=== PATIENT | female | born 1965 | race Caucasian/White ===

== ENCOUNTER 2017-03-13 22:53 | Inpatient (IN) | payer OTHER ==
[~2017-03-13] VITALS: Ht 172.7 cm; Wt 70.3 kg
--- NOTE | 2017-03-13 23:05 | NUR ---
PT BIB PA WITH A C/O LOW H&H. PT IS TRACH (SHILEY 8) VENTED (AC12, TV 400, FIO2 30%, PEEP 5). PT IS NON VERBAL. PT HAS RUE DOUBLE LUMEN PICC LINE. PT HAS LARGE HEMATOMA UNDER THE PICC LINE ON RUE. PT HAS RECTAL TUBE, GTUBE, HARRIS CATH VERIFYING MACHINE OPERATOR. PT IS ON THE MONITOR AND CONTINUOUS PULSE OX. WILL CONTINUE TO MONITOR THE PT.
--- NOTE | 2017-03-13 23:05 | NUR ---
DNR NOTED IN PT'S CHART. MEDICAL INTERVENTIONS = FULL TX.
[2017-03-13 23:24] LABS: LYMPHOCYTES # (AUTO) 0.3 /CMM (0.8-4.8); LYMPHOCYTES % (AUTO) 5.4 % (20.0-44.0); MEAN CORPUSCULAR HEMOGLOBIN 32 PG (26.0-33.0); MEAN CORPUSCULAR HGB CONC 34 g/dl (31.0-36.0); MEAN CORPUSCULAR VOLUME 94 fL (82-100); MONOCYTES # (AUTO) 0.4 /CMM (0.1-1.30); MONOCYTES % (AUTO) 8.3 % (2.0-12.0); NEUTROPHILS # (AUTO) 4.3 /CMM (1.8-8.9); NEUTROPHILS % (AUTO) 86.3 % (43.0-81.0); PLATELET COUNT (AUTO) 118 /CMM (150-450); RDW COEFFICIENT OF VARIATION 18.6 (11.5-15.0)
[2017-03-13 23:29] LABS: RED BLOOD CELL COUNT(AUTO) 1.88 MIL/uL (4.0-5.2)
[2017-03-13 23:30] LABS: HEMATOCRIT 18 % (33-45)
[2017-03-13 23:34] LABS: CALCIUM, SERUM 8.8 mg/dL (8.5-10.1); CREATININE 0.5 mg/dL (0.6-1.3); POTASSIUM 5.2 mmol/L (3.5-5.1)
[2017-03-13 23:35] VITALS: BP 104/68
[2017-03-13 23:38] LABS: INR 0.93 (0.87-1.13)
[2017-03-13 23:39] LABS: BILIRUBIN,DIRECT 0.4 mg/dL (0.0-0.2); BILIRUBIN,TOTAL 1.3 mg/dL (0.2-1.0); TOTAL PROTEIN, SERUM 4.3 g/dL (6.4-8.2)
[2017-03-13 23:42] LABS: ALBUMIN 1.4 g/dL (3.4-5.0)
[2017-03-13 23:54] LABS: BAND % (MANUAL) 7 % (0.0-5.0); LYMPHOCYTES % (MANUAL) 6 % (16-48); MONOCYTES % (MANUAL) 9 % (0-11.0); NEUTROPHILS % (MANUAL) 78 (42-76)
--- NOTE | 2017-03-13 23:58 | NUR ---
PT HAS HX OF MYOTONIC MUSCULAR DYSTROPHY WITH SUBACUTE RESP FAILURE.
[2017-03-14] VITALS (24 sets, daily range): BP systolic 95–130; BP diastolic 50–81
--- NOTE | 2017-03-14 00:13 | NUR ---
BLOOD CONSENT IS IN THE CHART.
[2017-03-14] MEDS ORDERED: LEVO125T8 GT (00:34)
[2017-03-14] MEDS ORDERED: NA P133E RC (00:34)
[2017-03-14] MEDS ORDERED: NUT.237L30 GT (00:34)
[2017-03-14] MEDS ORDERED: INSU3INS8 SQ (00:34)
[2017-03-14] MEDS ORDERED: DULCOLAX SUPPOSITORY PR (00:34)
[2017-03-14] MEDS ORDERED: PANT40TA2 GT (00:34)
[2017-03-14] MEDS ORDERED: CALC650T29 GT (00:34)
[2017-03-14] MEDS ORDERED: NAPH1POW3 GT (00:34)
[2017-03-14] MEDS ORDERED: HYDR100V IV (00:34)
[2017-03-14] MEDS ORDERED: MAGN400O21 PO (00:34)
[2017-03-14] MEDS ORDERED: CHOL200026 GT (00:34)
[2017-03-14] MEDS ORDERED: ONDA4TAB10 GT (00:34)
[2017-03-14] MEDS ORDERED: LANO3.5O3 EACHEYE (00:34)
[2017-03-14] MEDS ORDERED: ACET325T53 GT (00:34)
--- NOTE | 2017-03-14 00:35 | NUR ---
TELE 306
--- NOTE | 2017-03-14 01:22 | NUR ---
CALLING REPORT TO TELE NURSE. Maine SNIDER DNP ADMITTING PT.
--- NOTE | 2017-03-14 02:00 | NUR ---
TELE COMPANY MINER BLASTING INITIAL NOTES ADMIT A PT FROM ER VIA GURNEY ACCOMPANIED BY ER NURSE , RT AND NURSE. DX OF ANEMIA. PT ON MECHANICAL VENT SET UP BY RT ORDERED. TV 400, FIO2 30, PEEP5, AC12. PT SKIN WARM AND DRY TO TOUCH, PALE AND NOTICED RASH ON HER FACE, DRY LIPS, DISCOLORATION ON BOTH ARM , EXCORIATION ON BOTH GROIN AREA , BUTTOCKS AREA, INNER THIGH, BRUISE ON RIGHT LOWER BACK. NO SIGNS OF ANY ACUTE DISTRESS NOTED AT THIS TIME. HARRIS TO GRAVITY WITH ORANGE COLORED OUTPUT, ALSO WITH RECTAL TUBE AND G-TUBE CLAMPED AT THIS TIME. ON TELE SR WITH 1ST DEGREE AV BLOCK HEART RATE 76 PER MONITOR. KEPT HER WARM AND COMFORTABLE AT ALL TIMES. WILL CONTINUE TO MONITOR.
--- NOTE | 2017-03-14 05:40 | NUR ---
COMMUNITY OUTREACH SPECIALIST/NOTES BLOOD TRANSFUSION STARTED VITAL SIGNS FF BP 99/62, PULSE RATE 74, RESP 14 TEMP 97.5 AND O2 SAT 100 %. VERIFIED AND CHECKED BY ANOTHER NURSE. KEPT HER COMFORTABLE AND RE ASSESS PT AFTER 15 MINUTES. WILL CONTINUE TO MONITOR.
--- NOTE | 2017-03-14 06:00 | NUR ---
BUSINESS REPORTER/NOTES RE-CHECKED PT VITAL SIGNS STABLE , NOT IN ANY ACUTE DISTRESS NOTED. KEPT HER WARM AND COMFORTABLE AT ALL TIMES. WILL CONTINUE TO MONITOR. TELE SR WITH 1ST DEGREE AV BLOCK .
--- NOTE | 2017-03-14 07:41 | NUR ---
TELE WATER REGULATOR AND VALVE REPAIRER CLOSING NOTES PT STILL ON BLOOD TRANSFUSION , NO ADVERSE REACTION NOTED. VITAL SIGNS WITHIN NORMAL LIMIT. TELE SINUS RHYTHM WITH 1ST DEGREE AV BLOCK HEART RATE 82 PER MONITOR. GOT ADMITTING ORDERED FROM DR LABOY. KEPT PT WARM AND COMFORTABLE AT ALL TIMES. ENDORSE TO AM NURSE FOR CONTINUITY OF CARE.
--- NOTE | 2017-03-14 07:56 | NUR ---
COSTUME RENTAL CLERK OPENING NOTE RECEIVED PATIENT IN BED SLEEPING. RESPONSIVE TO VERBAL STIMULI. RESPIRATION REGULAR AND UNLABORED. PATIENT IS NON-VERBAL. NO APPARENT DISTRESS. NOTED. DENNIS PICC LINE WITH NO S/S INFILTRATION. BED LOW AND LOCKED. SIDE RAIL UP X3. CALL LIGHT WITHIN REACH. WILL CONTINUE TO MONITOR.
[2017-03-14] MEDS ORDERED: ACETAMINOPHEN 650 MG/20.3 ML UDC GT PRN (09:00)
[2017-03-14] MEDS ORDERED: GLYTROL 1,000 ML BAG GT SCH (09:00)
[2017-03-14] MEDS ORDERED: LEVOTHYROXINE SODIUM 125 MCG TABLET GT SCH (09:00)
[2017-03-14] MEDS ORDERED: MAGNESIUM HYDROXIDE 30 ML UDC PO PRN (09:00)
[2017-03-14] MEDS ORDERED: NA PHOS,M-B/NA PHOS,DI-BA 1 EA ENEMA RC PRN ×2 (09:00→09:15)
--- NOTE | 2017-03-14 09:00 | NUR ---
RN NOTES NOTIFIED DR. LABOY REGARDING BLOOD TRANSFUSION ORDERS TO CLARIFY ORDERS, PER MD GIVE 3 UINITS OF PRBC STAT AND THEN RECHECK CBC BMP, RELAYED PROTOCOL OF CHECKING H/H 1 HR AFTER EACH TRANSFUSION, STATES " NO I WANT HER TO GET 3 UNITS THEN CHECK LABS, SHE MOST LIKELY BE DISCHARGED" WILL ADMINISTER BLOOD TRANSFUSIONS ORDERED AND CONTINUE TO MONITOR
[2017-03-14] MEDS ORDERED: ONDANSETRON 4 MG TAB.RAPDIS GT PRN (09:30)
[2017-03-14] MEDS ORDERED: BISACODYL SUPP (10 MG) 10 MG/SUPP.RECT SUPP.RECT RC PRN (09:30)
[2017-03-14] MEDS ORDERED: CHOLECALCIFEROL 1,000 UNIT TABLET (VIT D3) GT SCH (09:30)
[2017-03-14] MEDS: PANTOPRAZOLE 40 MG/PACK PACK GT SCH ×2 (11:09→16:33)
[2017-03-14] MEDS: NEUTRA PHOS 1 POWD.PACKET GT SCH ×3 (11:09→16:33)
[2017-03-14] MEDS: CALCIUM CARBONATE (1250) 500 MG TABLET GT SCH ×3 (11:09→16:33)
[2017-03-14] MEDS: LANOLIN/MIN OIL/PETROLAT,WHT 3.5 GM TUBE EACHEYE SCH ×4 (11:31→21:13)
[2017-03-14] MEDS ORDERED: INSULN 70/30 ASP+PRT/ASP MIX 100 UNIT/ML CARTRIDGE SQ SCH (12:30)
--- NOTE | 2017-03-14 16:46 | NUR ---
PT NOT READY FOR CT SCAN, RN WILL CALL WHEN READY.
--- NOTE | 2017-03-14 17:57 | NUR ---
RN NOTES PT S/P BLOOD TRANSFUSIONS PRBC X3 UNITS PER MD ORDERS, PER MD REDRAW CBC AND BMP AND STAT CT OF ABD AND PELVIS RN TO NOTIFY DR. LABOY OF RESULTS PRIOR TO DISCHARGE, CHARLENE BERNARD AWARE PER CHARLENE BERNARD PT TO BE DISCHARGED TODAY ORDERED BY MD WILL CONTINUE TO ASSIST WITH DISCHARGE PROCESS AND CONTINUE TO MONITOR Addendum: 03/14/17 at 1800 by MOSES MANUEL RN RN NOTES NO ADVERSE REACTIONS TO BLOOD TRANSFUSIONS NOTED, WILL CONTINUE TO MONITOR
--- NOTE | 2017-03-14 18:00 | NUR ---
TELE/RN CLOSING NOTE PATIENT IN BED AWAKE. NO -RESPONSIVE. NO MANIFESTATION OF SOB, PAIN NOTED. IN NO APPARENT DISTRESS. GOOD AND GENTLE SKIN CARE RENDERED. MEDS GIVEN ORDERED AND NO ASE NOTED. DENNIS PICC LINE PATENT AND NO S/S INFILTRATION NOTED. BED LOW AND LOCKED. SIDE RAIL UP X3. CALL LIGHT WITHIN REACH. WILL ENDORSE TO NIGH SHIFT.
--- NOTE | 2017-03-14 18:06 | NUR ---
RN NOTES NOTIFIED RADIOLOGY PT HAS COMPLETED BLOOD TRANSFUSIONS AND PT READY TO HAVE CT SCAN, PER RADIOLOGY WILL COME AFTER DONE WITH OTHER EXAM IN ER, WILL CONTINUE TO MONITOR AT THIS TIME
--- NOTE | 2017-03-14 19:20 | NUR ---
ASSOCIATE MANAGER NOTES RECEIVED PT IN BED, APPEARS COMFORTABLE. TRACH WITH VENT INTACT AND PATENT, SUCTIONED PRN. NO S/S OF DISTRESS, NOR SOB NOTED. DENNIS PICC LINE INTACT AND PATENT, WITH GOOD VENOUS RETURN. GT IS INTACT AND PATENT, GTF ELI WELL. ON ASPIRATION PRECAUTION. FC IS INTACT AND PATENT DRAINING WELL WITH YELLOW URINE, NO HEMATURIA NOTED. RECTAL TUBE IN PLACE. NO S/S OF PAIN OR DISCOMFORT AT THIS TIME. ALL NEEDS ANTICIPATED. SAFETY PRECAUTIONS OBSERVED. WILL CONT TO MONITOR PT IS FOR DISCHARGE TONIGHT, AWAITING TRANSPORTATION.
[2017-03-14 19:51] LABS: CALCIUM, SERUM 8.7 mg/dL (8.5-10.1); CREATININE 0.4 mg/dL (0.6-1.3); POTASSIUM 4.8 mmol/L (3.5-5.1)
--- NOTE | 2017-03-14 20:06 | NUR ---
RECEIVED A CALL FROM CHRISTIANA , PER CHRISTIANA PT IS OK TO BE DISCHARGED TONIGHT, SHE VERIFIED ALREADY WITH [facility] PROCTOR NURSE. Addendum: 03/15/17 at 0211 by ROSALES LAMBERT RN INCORRECT DOCUMENTATION TIME
--- NOTE | 2017-03-14 21:05 | NUR ---
RT NOTE PATIENT RECEIVED TRACHED ON MECHANICAL VENTILATION. SUCTION DONE, TRACH SECURED AND PATENT. ALARMS ON AND AUDIBLE. NO SOB NOTED.
[2017-03-14 21:09] LABS: BASOPHILS # (AUTO) 0.1 /CMM (0.0-0.2); BASOPHILS % (AUTO) 1.4 % (0.0-2.0); EOSINOPHILS % (AUTO) 0.6 % (0.0-6.0); HEMATOCRIT 31 % (33-45); HEMOGLOBIN 10.6 g/dL (11.5-14.8); LYMPHOCYTES # (AUTO) 0.7 /CMM (0.8-4.8); LYMPHOCYTES % (AUTO) 13.3 % (20.0-44.0); MEAN CORPUSCULAR HEMOGLOBIN 31 PG (26.0-33.0); MEAN CORPUSCULAR HGB CONC 35 g/dl (31.0-36.0); MEAN CORPUSCULAR VOLUME 89 fL (82-100); MONOCYTES # (AUTO) 0.6 /CMM (0.1-1.30); MONOCYTES % (AUTO) 10.1 % (2.0-12.0); NEUTROPHILS # (AUTO) 4.2 /CMM (1.8-8.9); NEUTROPHILS % (AUTO) 74.6 % (43.0-81.0); PLATELET COUNT (AUTO) 108 /CMM (150-450); RDW COEFFICIENT OF VARIATION 18.4 (11.5-15.0); RED BLOOD CELL COUNT(AUTO) 3.42 MIL/uL (4.0-5.2); WHITE BLOOD COUNT (AUTO) 5.6 K/uL (4.3-11.0)
--- NOTE | 2017-03-14 21:36 | NUR ---
RELAYED RESULT OF CT OF ABDOMEN AND PELVIS WITHOUT CONTRAST TO DR. LABOY, PER MD NO BLEEDING NOR HEMATOMA AND ALSO RELAYED CBC AND BMP RESULT PER MD PT IS OK TO BE DISCHARGED.
--- NOTE | 2017-03-14 21:40 | NUR ---
PLACED A CALL TO [facility] AND SPOKE WITH SUKHDEV JOHNSON IN [facility] PER ELIZABETH, THEY'RE ACCEPTING THE PT. REPORT GIVEN AND ENDORSED PT ACCORDINGLY.
--- NOTE | 2017-03-14 21:50 | NUR ---
RECEIVED A CALL FROM ASA FROM [facility] , PER ARCENIO THEY CANNOT ACCEPT THE PT TONIGHT BECAUSE THERE'S NO BED. WILL VERIFY WITH PEDIATRIC LPN KAJAL AND WILL FF UP..
--- NOTE | 2017-03-14 21:51 | NUR ---
SPOKE WITH KAJAL, BALLISTICS PROFESSOR. PER KAJAL IT WAS CHRISTIANA FROM [facility] WHO ARRANGED THE DISCHARGE AND THE TRANSPORTATION TO [facility]. WILL CALL [facility].
--- NOTE | 2017-03-14 21:54 | NUR ---
PLACED A CALL TO CHRISTIANA FROM [facility], PER CHRISTIANA SHE SPOKE PETER RBAY TODAY AND AGREED TO ACCEPT THE PT WITHIN THE SAME DAY. PER CHRISTIANA SHE'LL CALL ASA AND WILL CALL US BACK.
--- NOTE | 2017-03-14 22:06 | NUR ---
RECEIVED A CALL FROM CHRISTIANA , PER CHRISTIANA PT IS OK TO BE DISCHARGED TONIGHT, SHE VERIFIED ALREADY WITH [facility]LEJANDRA KAPOOR CHARGE NURSE.
--- NOTE | 2017-03-14 23:50 | NUR ---
PT STABLE, NO S/S OF DISTRESS, NOR SOB NOTED. PICKED UP BY [facility] WITH 2 AMBULANCE CREW AND RT. REPORT AND ENDORSED PT ACCORDINGLY, ALL DISCHARGE PAPERS AND BELONGINGS SENT WITH THE PT.
[2017-03-15] MEDS ORDERED: HYDROCORTISONE SOD SUCCINATE 100 MG/2 ML VIAL IV SCH (09:00)
== END 2017-03-14 23:50 | DRG 812 ==
LOC: ER 22:58 → TELE 03-14 01:45
PROVIDERS: ADMIT Internal Medicine; ATTEND Internal Medicine
PROC: 5A1935Z Respiratory Ventilation, Less than 24 Consecutive Hours (ICD-10-PCS; principal; 2017-03-14)
PROC: 30233N1 Transfusion of Nonautologous Red Blood Cells into Peripheral Vein, Percutaneous Approach (ICD-10-PCS; 2017-03-14)
DX: D53.9 Nutritional anemia, unspecified (principal); Z99.11 Dependence on respirator [ventilator] status; J96.10 Chronic respiratory failure, unspecified whether with hypoxia or hypercapnia; E44.1 Mild protein-calorie malnutrition; Z93.0 Tracheostomy status; G71.11 Myotonic muscular dystrophy; I48.0 Paroxysmal atrial fibrillation; Z93.1 Gastrostomy status; E03.9 Hypothyroidism, unspecified; E11.9 Type 2 diabetes mellitus without complications; K21.9 Gastro-esophageal reflux disease without esophagitis; Z66 Do not resuscitate; I10 Essential (primary) hypertension; Z68.23 Body mass index [BMI] 23.0-23.9, adult
CPT/HCPCS: 31720; 36415; 71045-TC; 80048-TC; 80076-TC; 85025-TC; 85730-TC; 86850-TC; 86921-TC; 87081-TC; 94002-TC; 94762-TC; A4606; J1815; J7040; J7050; P9016-BL; Z7610